=== PATIENT | female | born 1980 | race Caucasian/White ===

== ENCOUNTER 2021-08-08 16:29 | Emergency (ER) | payer MEDICAID ==
[~2021-08-08] VITALS: Ht 167.6 cm; Wt 75.0 kg
[~2021-08-08 16:29] MED LIST: CLON-529 PO; COL100C PO; DULO-31 PO; MAGN296S70 PO; TRAM50TA2 PO
[2021-08-08] MEDS ORDERED: NO HOME MEDS (19:14)
[2021-08-08 20:06] LABS: CLARITY,URINE CLEAR (Clear); COLOR,URINE YELLOW (Yellow); GLUCOSE, URINE NEGATIVE (Neg); KETONES,URINE 40 mg/dl (Neg); LEUKOCYTE ESTERASE ,URINE NEGATIVE (Neg); NITRITES, URINE POSITIVE (Neg); OCCULT BLOOD,URINE NEGATIVE (Neg); PH,URINE 5.5 (4.8-8.0); PROTEIN,URINE NEGATIVE (Neg); UROBILINOGEN,URINE 0.2 E.U/dL (0.2-1.0)
[2021-08-08 20:08] LABS: UA COLLECTION TYPE CLN CATCH MIDSTREAM
[2021-08-08 20:10] LABS: URINE HCG NEGATIVE (NEG)
[2021-08-08 20:13] LABS: BACTERIA,URINE 1+ /HPF (Neg); RBC,URINE NONE SEEN /HPF (0-2); SQUAMOUS EPITHELIAL CELL,UR MODERATE /LPF (FEW); WBC,URINE 0-4 /HPF (0-4)
--- NOTE | 2021-08-08 20:21 | NUR ---
One to one with the patient who was brought in by her . She has been having increased voices with thoughts to harm others but no one specifically. She also reports suicidal thoughts with a plan but is refusing to disclose the plan at this time. She reports recent methamphetamine use and off her psychiatric medications for the past 5 years. She reports voices are constant and at times tell her to harm herself but are primarily derogatory in nature. She reports the voices wake her up at night.
[2021-08-08 20:38] LABS: BASOPHILS % (AUTO) 0.7 % (0-1); EOSINOPHILS # (AUTO) 0.2 X10'3 (0-0.9); EOSINOPHILS % (AUTO) 3.1 % (0-6); LYMPHOCYTES # (AUTO) 1.4 X10'3 (1.1-4.8); MEAN CORPUSCULAR VOLUME 85.2 FL (78-98); MONOCYTES # (AUTO) 0.4 X10'3 (0-0.9); WHITE BLOOD COUNT 6.6 X10'3 (4.5-11.0)
[2021-08-08 20:39] LABS: HEMATOCRIT 39.5 % (35.0-45.0); HEMOGLOBIN 13.4 g/dl (12.0-16.0); LYMPHOCYTES % (AUTO) 21.6 % (21-51); MEAN CORPUSCULAR HEMOGLOBIN 28.8 PG (27.0-31.0); MEAN CORPUSCULAR HGB CONC 33.8 g/dL (33.0-36.5); MEAN PLATELET VOLUME 7.1 FL (7.4-10.4); NEUTROPHILS # (AUTO) 4.6 X10'3 (1.8-7.7); NEUTROPHILS % (AUTO) 68.6 % (42-75); PLATELET COUNT 328 X10'3 (140-440); RED BLOOD COUNT 4.64 X10'6 (4.20-5.60); RED CELL DISTRIBUTION WIDTH 13.7 % (11.5-14.5)
[2021-08-08 20:44] LABS: ALANINE AMINOTRANSFERASE 23 U/L (12-78); ALBUMIN 3.4 G/DL (3.4-5.0); ALKALINE PHOSPHATASE 73 IU/L (46-116); ANION GAP 7 (8-16); ASPARTATE AMINO TRANSFERASE 24 U/L (10-37); BILIRUBIN,TOTAL 0.5 MG/DL (0.1-1.0); BLOOD UREA NITROGEN 11 MG/DL (7-18); BUN/CREATININE RATIO 13.9 (6.6-38.0); CALCIUM 8.3 MG/DL (8.5-10.1); CHLORIDE 103 MMOL/L (99-107); CREATININE 0.79 MG/DL (0.40-0.90); GLUCOSE 158 MG/DL (70-104); POTASSIUM 3.3 MMOL/L (3.5-5.1); SODIUM 135 MMOL/L (135-145); TOTAL PROTEIN 6.8 G/DL (6.4-8.2); eGFR 80 ML/MIN
[2021-08-08 20:46] LABS: URINE AMPHETAMINE SCREEN POSITIVE (Neg); URINE BARBITUATE SCREEN NEGATIVE (Neg); URINE BENZODIAZEPINES SCREEN NEGATIVE (Neg); URINE CANNABINOID SCREEN NEGATIVE (Neg); URINE COCAINE SCREEN NEGATIVE (Neg); URINE METHADONE SCREEN NEGATIVE (Neg); URINE OPIATE SCREEN NEGATIVE (Neg); URINE PHENCYCLIDINE SCREEN NEGATIVE (Neg)
[2021-08-08 20:53] LABS: ETHANOL < 0.010 GM/DL (0.0-0.010)
[2021-08-08] MEDS ORDERED: OLANZapine 2.5MG tablet PO ONE (21:00)
[2021-08-08] MEDS ORDERED: potassium Cl 20 mEq SR tablet PO STA (21:04)
[2021-08-08] MEDS: cephalexin 250mg capsule PO SCH (21:09)
--- NOTE | 2021-08-08 21:16 | NUR ---
Packet sent to [facility]
--- NOTE | 2021-08-08 21:16 | NUR ---
The patient is resting on her bed
--- NOTE | 2021-08-08 23:09 | NUR ---
The patient is resting on her bed but is restless
--- NOTE | 2021-08-09 01:00 | NUR ---
The patient appears to be sleeping
--- NOTE | 2021-08-09 02:44 | NUR ---
The patient appears to be sleeping
--- NOTE | 2021-08-09 04:00 | NUR ---
The patient appears to be sleeping
--- NOTE | 2021-08-09 05:22 | NUR ---
The patient appears to be sleeping
--- NOTE | 2021-08-09 06:37 | NUR ---
Assumed care. Patient is resting quietly in bed. No s/sx acute distress.
[2021-08-09] MEDS: cephalexin 250mg capsule PO SCH ×2 (08:19→19:40)
--- NOTE | 2021-08-09 08:56 | NUR ---
Patient awakened for breakfast. ABX administered as ordered. Resting quietly in bed at this time with no s/sx acute distress
--- NOTE | 2021-08-09 11:00 | NUR ---
Patient continues to rest quietly in bed. Appears awake off and on. No s/sx acute distress.
--- NOTE | 2021-08-09 13:42 | NUR ---
Patient is resting quietly in bed. No s/sx distress.
--- NOTE | 2021-08-09 16:45 | NUR ---
Patient is resting quietly in bed. Sleeps off and on. Has been accepted to [facility]. 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
[2021-08-09] MEDS ORDERED: CEPH-585 PO (19:33)
[2021-08-09 20:29] VITALS: BP 103/69
== END 2021-08-09 20:00 ==
LOC: ER 16:30
DX: R44.0 Auditory hallucinations (principal); N39.0 Urinary tract infection, site not specified; J45.909 Unspecified asthma, uncomplicated; Z98.890 Other specified postprocedural states; Z98.51 Tubal ligation status
CPT/HCPCS: 36415; 80053; 80305; 80320; 81001; 81025; 84443; 85025; 99285

== ENCOUNTER 2021-12-04 14:04 | Emergency (ER) | payer MEDICAID ==
[~2021-12-04] VITALS: Ht 170.2 cm; Wt 86.4 kg
[~2021-12-04 14:04] MED LIST changes: -CLON-529 PO; -COL100C PO; -DULO-31 PO; -MAGN296S70 PO; +NO HOME MEDS; -TRAM50TA2 PO
[2021-12-04 14:08] VITALS: BP 117/76
[2021-12-04 14:33] LABS: BASOPHILS # (AUTO) 0.1 X10'3 (0-0.2); BASOPHILS % (AUTO) 0.6 % (0-1); EOSINOPHILS # (AUTO) 0.2 X10'3 (0-0.9); EOSINOPHILS % (AUTO) 2.4 % (0-6); HEMATOCRIT 39.2 % (35.0-45.0); HEMOGLOBIN 13.2 g/dl (12.0-16.0); LYMPHOCYTES # (AUTO) 1.9 X10'3 (1.1-4.8); LYMPHOCYTES % (AUTO) 22.3 % (21-51); MEAN CORPUSCULAR HEMOGLOBIN 28.9 PG (27.0-31.0); MEAN CORPUSCULAR HGB CONC 33.8 g/dL (33.0-36.5); MEAN CORPUSCULAR VOLUME 85.4 FL (78-98); MEAN PLATELET VOLUME 6.8 FL (7.4-10.4); MONOCYTES # (AUTO) 0.8 X10'3 (0-0.9); MONOCYTES % (AUTO) 9.5 % (2-12); NEUTROPHILS # (AUTO) 5.5 X10'3 (1.8-7.7); NEUTROPHILS % (AUTO) 65.2 % (42-75); PLATELET COUNT 364 X10'3 (140-440); RED BLOOD COUNT 4.59 X10'6 (4.20-5.60); RED CELL DISTRIBUTION WIDTH 13.5 % (11.5-14.5); WHITE BLOOD COUNT 8.4 X10'3 (4.5-11.0)
[2021-12-04 15:03] LABS: ALANINE AMINOTRANSFERASE 24 U/L (12-78); ALBUMIN 3.6 G/DL (3.4-5.0); ALKALINE PHOSPHATASE 84 IU/L (46-116); ANION GAP 9 (8-16); ASPARTATE AMINO TRANSFERASE 19 U/L (10-37); BILIRUBIN,TOTAL 0.3 MG/DL (0.1-1.0); BLOOD UREA NITROGEN 12 MG/DL (7-18); BUN/CREATININE RATIO 16.2 (6.6-38.0); CALCIUM 8.9 MG/DL (8.5-10.1); CHLORIDE 100 MMOL/L (99-107); CREATININE 0.74 MG/DL (0.40-0.90); GLUCOSE 87 MG/DL (70-104); LIPASE 176 U/L (73-393); POTASSIUM 3.5 MMOL/L (3.5-5.1); SODIUM 136 MMOL/L (135-145); TOTAL CARBON DIOXIDE 26.8 MMOL/L (24-32); TOTAL PROTEIN 7.3 G/DL (6.4-8.2); eGFR 86 ML/MIN
[2021-12-04 17:29] LABS: URINE HCG NEGATIVE (NEG)
[2021-12-04 17:36] LABS: CLARITY,URINE SLIGHTLY CLOUDY (Clear); GLUCOSE, URINE NEGATIVE (Neg); KETONES,URINE NEGATIVE (Neg); LEUKOCYTE ESTERASE ,URINE NEGATIVE (Neg); NITRITES, URINE NEGATIVE (Neg); OCCULT BLOOD,URINE NEGATIVE (Neg); PH,URINE 6.5 (4.8-8.0); PROTEIN,URINE NEGATIVE (Neg); UROBILINOGEN,URINE 0.2 E.U/dL (0.2-1.0)
[2021-12-04 17:45] LABS: COLOR,URINE STRAW (Yellow); UA COLLECTION TYPE CLN CATCH MIDSTREAM
[2021-12-04 17:46] LABS: BACTERIA,URINE 2+ /HPF (Neg); SQUAMOUS EPITHELIAL CELL,UR MANY /LPF (FEW)
[2021-12-04 17:47] LABS: YEAST MODERATE /HPF (NEGATIVE)
[2021-12-04 17:48] LABS: RBC,URINE 0-2 /HPF (0-2)
--- NOTE | 2021-12-04 17:50 | NUR ---
U/A REJECTED FOR CULTURE
[2021-12-04] MEDS ORDERED: nitrofuran monohydrate/nitrofuran macrocrysal 100 MG (MacroBID) capsule PO ONE (20:50)
[2021-12-04] MEDS ORDERED: NITR100C6 PO (21:01)
== END 2021-12-04 21:15 | disposition home or self-care (01) ==
LOC: ER 14:05
DX: N39.0 Urinary tract infection, site not specified (principal); F31.9 Bipolar disorder, unspecified; Z98.890 Other specified postprocedural states; J45.909 Unspecified asthma, uncomplicated; Z79.899 Other long term (current) drug therapy
CPT/HCPCS: 36415; 80053; 81001; 81025; 83690; 85025; 99283